=== PATIENT | male | born 1940 | race Caucasian/White ===

== ENCOUNTER → 2016-05-20 | Emergency (ER) | payer MEDICARE, OTHER ==
[~2016-05-20] MED LIST: ALBU.5I NEB; ALBU0.086 NEB; IPRA0.02 NEB; PRED20 PO; SODIUM BICARBONATE 8.4% INJ 50 MEQ/50 ML SYR IV ONE
--- NOTE | 2016-05-20 19:14 | PD ---
HPI Chief Complaint: Code Blue Time Seen by Provider: 19:07 Travel History International Travel<30 days: No Contact w/Intl Traveler<30days: No Traveled to known affect area: No History of Present Illness HPI This 75-year-old male is brought in with CPR in progress. Firefighters responded to his house and found him with agonal respirations. CPR was initiated. He was noted to be in electromechanical dissociation. At the time of his arrival in the hospital CPR has been in progress for about 30 minutes. He has been pulseless and apneic the entire time. Limited history is available. He does have a history of COPD. The events leading to his collapse are unknown. [facility] Past Medical History Diminished Hearing: No Immunizations Current: Yes Past Surgical History Tonsillectomy: Yes Other Surgery: Yes (RIGHT KNEE CARTILAGE REPAIR) Social History Alcohol Use: No Tobacco Use: No (1 PPD QUIT 2 WEEEKS AGO) Substance Use: No Allergies-Medications (Allergen,Severity, Reaction): Coded Allergies: No Known Allergies (Verified , 07/22/14) Reported Meds & Prescriptions Reported Meds & Active Scripts Active Atrovent Ud 0.02% (0.5 Mg/2.5 Ml) (Ipratropium [place]) 0.5 Mg/2.5 Ml Nebu 0.5 Mg NEB Q8 Proventil Conc Ud 0.5% (2.5 Mg/0.5 Ml) (Albuterol Sulfate) 2.5 Mg/0.5 Ml Inha 2.5 Mg NEB Q4HR NEB Deltasone (Prednisone) 20 Mg Tab 2 Tab PO DAILY 5 Days Reported Proventil Ud 0.083% (2.5 Mg/3 Ml) (Albuterol Sulfate) 2.5 Mg/3 Ml Inha 2.5 Mg NEB Q4HR NEB Review of Systems ROS Limitations: Clinical Condition, Intubated Physical Exam Narrative GENERAL: Elderly male unresponsive, he is pulseless and apneic with dilated pupils SKIN: Cool. HEAD: Atraumatic. Normocephalic. EYES: Pupils equal and round. No scleral icterus. No injection or drainage. ENT: No nasal bleeding or discharge. Mucous membranes pink and moist. NECK: Trachea midline. No JVD. CARDIOVASCULAR: No heart tones are heard RESPIRATORY: No spontaneous respirations. With assisted ventilations are bilateral breath sounds GASTROINTESTINAL: Abdomen soft, non-tender, nondistended. Hepatic and splenic margins not palpable. There is a right inguinal hernia MUSCULOSKELETAL: No obvious deformities. No clubbing. No cyanosis. No edema. NEUROLOGICAL: Unresponsive MDM Medical Decision Making Medical Screen Exam Complete: Yes Emergency Medical Condition: Yes Medical Record Reviewed: Yes Differential Diagnosis Differential includes cardiopulmonary arrest, acute GA, electrolyte mechanical dissociation Narrative Course Patient was pronounced at 657 Procedures Procedure Narrative CPR was continued. He was given a single dose of adrenaline. Pulse checks showed no pulse. He would had no spontaneous respirations. He has been pronounced Duarte Pennington MD May 20, 2016 19:14
== END | disposition expired ==
LOC: PHED 18:56
DX: I46.9 Cardiac arrest, cause unspecified (principal)
CPT/HCPCS: 92950